=== PATIENT | female | born 1995 | race Two or more races ===

== ENCOUNTER 2018-10-05 20:22 | Emergency (ER) | payer OTHER ==
[~2018-10-05] VITALS: Ht 160 cm; Wt 90.7 kg
[2018-10-05 21:11] LABS: Urine Bacteria NONE SEEN /hpf (None Seen); Urine Blood 2+ /uL (Negative); Urine Specific Gravity 1.018 (1.001-1.035); Urine Sperm PRESENT /hpf (None Seen); Urine WBC 1 /hpf (0 - 5)
[2018-10-06 03:13] VITALS: BP 136/86
== END 2018-10-06 03:12 | disposition home or self-care (01) ==
LOC: ER 20:26
DX: O20.0 Threatened abortion (principal); Z3A.19 19 weeks gestation of pregnancy
CPT/HCPCS: 36415; 76805; 81001; 84702